=== PATIENT | male | born 1975 | race Caucasian/White ===

== ENCOUNTER 2017-07-11 17:54 | Emergency (ER) | payer OTHER ==
[~2017-07-11] VITALS: Ht 170.2 cm; Wt 59.0 kg
== END 2017-07-11 19:58 | disposition left against medical advice (07) ==
LOC: CED 17:54 → CFTX 17:54 → CED 18:54
DX: Z53.21 Procedure and treatment not carried out due to patient leaving prior to being seen by health care provider (principal)